=== PATIENT | male | born 2005 | race Caucasian/White ===

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

== ENCOUNTER 2024-10-11 22:05 | Emergency (ER) | payer SELFPAY ==
[2024-10-11 22:06] VITALS: BP 139/82; PULSE 93; RESP 16; TEMP 36.8; O2SAT 99; BMI 38.7
--- NOTE | 2024-10-11 22:31 | EX.ED.DYSGE1 ---
HPI History of Present Illness Chief Complaint: Head Injury Informant: patient Narrative Narrative: Patient is a 19-year-old male with past medical history of asthma. 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 He states he bumped his head off something. He states he did not think much of this as it was a minor trauma and he did not experience headache or loss of consciousness. However when he walked into the house his girlfriend noted he was bleeding from the head where he had struck it and therefore recommended he come to the hospital for evaluation. The patient states that there is been no change in vision or light sensitivity he denies any headache or loss of consciousness. He denies any history of bleeding disorder or blood thinner use. He states his tetanus status is not up-to-date. [facility] Medical History Asthma Chronic neck and back pain Fatigue SOB (shortness of breath) Home Medications ?Medication ?Instructions ?Recorded ?Last Taken ?Type albuterol sulfate 90 mcg/actuation 2 puff inhalation Q6H PRN asthma 01/26/22 Unknown History aerosol inhaler sulfamethoxazole 800 1 tab PO BID 5 days #10 tabs 10/11/24 Unknown Rx mg-trimethoprim 160 mg tablet (Bactrim DS) Allergy/AdvReac Type Severity Reaction Status Date / Time ampicillin Allergy Unknown Verified 10/11/24 22:07 Penicillins Allergy Hives Verified 10/11/24 22:07 Family History Other Diabetes Heart disease Social History Smoking Status: Current every day smoker tobacco type: e-cigarettes alcohol intake: never ROS ROS ED Constitutional Constitutional ED: Denies chills or fever(s) Eyes Eyes: Denies blurry vision, change in vision or diplopia ENT ENT ED: Denies sore throat Cardiovascular Cardiovascular: Denies chest pain Respiratory/Chest Respiratory/Chest: Denies cough or dyspnea Gastrointestinal Gastrointestinal: Denies abdominal pain, diarrhea, nausea or vomiting Genitourinary Genitourinary ED: Denies dysuria Musculoskeletal Musculoskeletal: Denies neck pain Integumentary Reports other Details: Positive scalp laceration/injury Neurologic Neurologic: Denies headache(s), paresthesias or weakness Hematologic/Lymphatic Hematologic/Lymphatic: Denies easy bleeding or easy bruising EXAM Physical Exam Const Vital Signs: 10/11/24 22:06 10/11/24 22:18 Temperature 98.2 F Temperature Source Oral Pulse Rate 93 Respiratory Rate 16 Respiratory Effort Normal Respiratory Depth Normal Respiratory Pattern Normal Blood Pressure 139/82 H Blood Pressure Mean 101 Pulse Ox 99 Oxygen Delivery Method Room Air Room Air Positive well nourished and well developed General Appearance ED: well developed HEENT HEENT Narrative: Patient has a 1.5 cm curvilinear of dermal layer deep laceration to the occipital portion of his scalp. There is no active bleeding noted. There is a small surrounding hematoma as well. No signs of depressed or basilar skull fracture. No surrounding erythema or warmth or lymphangitic streaking to suggest infection Eyes PERRL and EOMs intact bilaterally General Eye ED: Negative for scleral icterus Neck supple Neck Narrative: No bony deformity or step-off of the cervical spine no midline tenderness to palpation Resp normal respiratory effort and clear to auscultation bilaterally Cardio regular rate and regular rhythm Extremity normal to inspection Neuro oriented x3, CN's II-XII intact bilaterally and no sensory deficits noted Sensorium / Orientation: alert Motor Exam: strength 5/5 throughout Psych mental status grossly normal Skin Skin Narrative: Dermal layer laceration with small hematoma along the occipital portion of the scalp as documented above MDM MDM MDM Narrative Medical decision making narrative: Patient arrived to the ER with stable vitals. He had a low mechanism of injury to the occipital portion of his scalp. He does not take blood thinners nor have a history of bleeding disorder. He has no signs of depressed or basilar skull fracture and does not provide any history that would indicate concussion symptoms. Therefore at this time with a low mechanism of injury and low risk for a traumatic skull fracture or traumatic subarachnoid or subdural hemorrhage I do not feel there is need for head CT. The patient's tetanus status was updated as he is unsure of it and the injury occurred from potentially dirty material within the barn. As there is also potential for infection from this he will be given prophylactic antibiotic. However with no active bleeding no signs of depressed or basilar skull fracture no signs of of secondary infection and no signs of concussion there is no need for further workup and he is otherwise safe for discharge History & Record Review Discussion w/independent historian: Patient Discharge Plan Triage Chief Complaint: Head Injury ED Provider: Rob Robb Dx/Rx/DC Orders Clinical Impression: Occipital scalp laceration, Closed head injury, Asthma Instructions: ED Head Injury (Adult), ED Laceration, Skin Adhesive Prescriptions: New sulfamethoxazole-trimethoprim [Bactrim DS] 800-160 mg tablet 1 tab PO BID 5 Days Qty: 10 0RF No Action albuterol sulfate 90 mcg/actuation HFA aerosol inhaler 2 puff inhalation Q6H PRN (Reason: asthma) Primary Care Provider: Konrad Bailey Referrals: Konrad Bailey MD [Primary Care Provider] - Print Language: Korean Disposition Disposition: Home, Self Care Discharge Date/Time: 10/11/24 23:21
[2024-10-11] MEDS: Diphth,Pertuss(Acell),Tet Vac 0.5 ML Vial IM (22:50)
== END 2024-10-11 23:21 | disposition home or self-care (01) ==
PROVIDERS: Emergency Provider Emergency Medicine; PCP Pediatrics; Visit Provider Emergency Medicine
DX: S01.01XA Laceration without foreign body of scalp, initial encounter (principal); J45.909 Unspecified asthma, uncomplicated; F17.290 Nicotine dependence, other tobacco product, uncomplicated; W18.09XA Striking against other object with subsequent fall, initial encounter; Y92.71 Barn as the place of occurrence of the external cause; Z23 Encounter for immunization
CPT/HCPCS: 90471; 90715; 99282